=== PATIENT | male | born 1985 | race Two or more races ===

== ENCOUNTER 2020-11-09 21:24 | Emergency (ER) | payer MEDICAID ==
[~2020-11-09] VITALS: Ht 175.3 cm; Wt 82.4 kg
[2020-11-09 21:26] VITALS: BP 123/91
--- NOTE | 2020-11-09 21:53 | NUR ---
PT WAS TRANSFERED DOWN FROM [facility] FOR GROIN NUMBNESS AND LOWER BACK PAIN NO OBVIOUS TRAUMA OR MEDICAL CAUSEA HAS VOIDED/DEFECATED TODAY WITHOUT DIFFICULTY
[2020-11-09 22:10] LABS: MICROSCOPIC NOT IND
--- NOTE | 2020-11-09 22:13 | NUR ---
MRI screening faxed and conformation received.
--- NOTE | 2020-11-09 22:46 | NUR ---
NO CHANGE IN NEURO EXAM
[2020-11-09 23:15] LABS: BASOPHILS % (AUTO) 1 % (0-1); EOSINOPHILS % (AUTO) 1 % (1-7); LYMPHOCYTES % (AUTO) 22 % (22-44); MEAN CORPUSCULAR HEMOGLOBIN 31.7 pg (27.5-34.5); MEAN CORPUSCULAR HGB CONC 35.1 g/dL (33.2-36.2); MEAN PLATELET VOLUME 8.2 fL (7.4-10.4); MONOCYTES % (AUTO) 13 % (2-9); NEUTROPHILS % (AUTO) 64 % (42-75); PLATELET COUNT 151 x10^3/uL (130-400); RED BLOOD COUNT 5.28 x10^6/uL (4.38-5.82); RED CELL DISTRIBUTION WIDTH 12.8 % (9.4-14.8)
[2020-11-09 23:16] LABS: MD NO
[2020-11-09 23:18] LABS: HCT (SEDRATE) 47.6 % (39.2-51.8)
[2020-11-09 23:26] LABS: ANION GAP 6 mmol/L (5-15); CALCIUM 8.6 mg/dL (8.5-10.1); CHLORIDE 110 mmol/L (98-107); CREATININE 0.79 mg/dL (0.7-1.3)
[2020-11-09] MEDS ORDERED: IBUPROFEN 600 MG TABLET ONE (23:42)
[2020-11-09] MEDS ORDERED: ACETAMINOPHEN 500 MG TABLET ONE (23:42)
[2020-11-10] MEDS ORDERED: IBUPROFEN 600 MG TABLET PO ONE
[2020-11-10] MEDS ORDERED: ACETAMINOPHEN 500 MG TABLET PO ONE
== END 2020-11-09 23:57 | disposition home or self-care (01) ==
LOC: ED 21:54
DX: S39.012A Strain of muscle, fascia and tendon of lower back, initial encounter (principal); R20.2 Paresthesia of skin; X58.XXXA Exposure to other specified factors, initial encounter; Y93.89 Activity, other specified; Y92.89 Other specified places as the place of occurrence of the external cause; Y99.8 Other external cause status
CPT/HCPCS: 36415; 72148; 80048; 81003; 85025; 85651; 99284